=== PATIENT | female | born 1940 | race Caucasian/White ===

== ENCOUNTER 2017-06-01 11:14 | Outpatient (CLI) | payer MEDICARE, BC ==
--- NOTE | 2017-06-14 13:48 | MMO ---
BILATERAL DIGITAL SCREENING MAMMOGRAMS: Date: 06/01/17 HISTORY: 77-year-old female presents for digital screening mammogram. COMPARISON: 03/23/16, 01/09/14, 11/29/12. FINDINGS: This patient's mammogram was interpreted with the assistance of computer-aided detection. Scattered areas of fibroglandular density are noted bilaterally. Stable typically benign calcificati ons. No direct or indirect evidence of malignancy. IMPRESSION: BIRADS 2: Benign Finding(s) Continue routine screening. POS: [facility]
== END 2017-06-01 11:15 | disposition home or self-care (01) ==
LOC: SCSMAMMO 11:14
PROVIDERS: ATTEND Internal Medicine
DX: Z12.31 Encounter for screening mammogram for malignant neoplasm of breast (principal)
CPT/HCPCS: 77067; G0202

== ENCOUNTER 2018-06-09 10:09 | Outpatient (CLI) | payer MEDICARE, BC ==
--- NOTE | 2018-06-09 12:39 | MMO ---
BILATERAL MAMMOGRAMS: History: Screening mammography. Comparison: Multiple exams back to 11-29-12. FINDINGS: This study is interpreted with the assistance of computer aided detection. Scattered fibroglandular densities. No dominant mass or suspicious calcifications. IMPRESSION: BIRADS category 1 - negative. Suggest routine follow up. POS: [facility]
== END 2018-06-09 10:10 | disposition home or self-care (01) ==
LOC: SCSMAMMO 10:09
PROVIDERS: ATTEND Internal Medicine
DX: Z12.31 Encounter for screening mammogram for malignant neoplasm of breast (principal)
CPT/HCPCS: 77067

== ENCOUNTER 2019-09-20 14:23 | Outpatient (CLI) | payer MEDICARE, BC | END 2019-09-20 14:24 | disposition home or self-care (01) | LOC: CTENTCT 14:23 | PROVIDERS: ATTEND Otolaryngology Plastic Surgery within the Head & Neck | DX: J32.9 Chronic sinusitis, unspecified (principal) | CPT/HCPCS: 70486 ==

== ENCOUNTER 2020-01-31 05:42 | Outpatient (CLI) | payer MEDICARE, BC, OTHER ==
[2020-02-01 15:41] LABS: SARS-CoV-2 MS2 Positive; SARS-CoV-2 N Gene Negative; SARS-CoV-2 S Gene Negative; SARS-CoV-2 orf1ab Negative
== END 2020-01-31 05:43 | disposition home or self-care (01) ==
LOC: LABBT 05:42
PROVIDERS: ATTEND Internal Medicine Critical Care Medicine
DX: Z01.812 Encounter for preprocedural laboratory examination (principal); Z11.59 Encounter for screening for other viral diseases; J18.9 Pneumonia, unspecified organism
CPT/HCPCS: 87635; U0003

== ENCOUNTER 2020-02-05 06:04 | Day surgery (SDC) | payer MEDICARE, BC ==
[2020-01-30 10:51] VITALS: BMI 22.0
[2020-02-05] MEDS ORDERED: Lidocaine 4% PF 5 ML AMP NEB SCH (06:30)
[2020-02-05] MEDS ORDERED: Fentanyl 100 MCG/2 ML VIAL ONE (06:39)
[2020-02-05] MEDS ORDERED: Glycopyrrolate 0.2 MG/ML 5 ML SYRINGE ONE (12:22)
[2020-02-05] MEDS ORDERED: Dexamethasone 20 MG/5 ML VIAL ONE (12:22)
[2020-02-05] MEDS ORDERED: Rocuronium Bromide 10 MG/ML (10ML VIAL) ONE (12:22)
[2020-02-05] MEDS ORDERED: PROPOFOL 200 MG/20 ML VIAL ONE (12:22)
[2020-02-05] MEDS ORDERED: Lidocaine 1% PF 5 ML VIAL ONE (12:22)
[2020-02-05] MEDS ORDERED: Ondansetron PF 4 MG/2 ML Vial ONE (12:22)
--- NOTE | 2020-02-05 16:10 | HP ---
HISTORY OF PRESENT ILLNESS: Ms. Moss is a pleasant 79-year-old female, who has had persistent waxing and waning infiltrates predominantly in her right upper lobe for many, many months. Tried to schedule bronchoscopy in the past. She has canceled it at the last time or cancelled after the bronchoscopy date was provided to her. Within the last month, we discussed bronchoscopy again because of CAT scan abnormalities that are slowly progressive. My index of suspicion is that this is Mycobacterium avium. Her radiograph does not have the appearance of a malignancy, although I have explained to her and the patient that the malignancy can look like anything. She has finally agreed to bronchoscopy today. The risks of bleeding, infection, and lung collapse were explained to her. PAST MEDICAL HISTORY: Noncontributory. FAMILY HISTORY: Noncontributory. SOCIAL HISTORY: Noncontributory. She is a nonsmoker. REVIEW OF SYSTEMS: Otherwise negative. Surprisingly, she has no sputum production, so we have been unable to rule out mycobacterial process with a sputum culture. PHYSICAL EXAMINATION: VITAL SIGNS: Her pulse is 80, respiratory rate is 17, oximetry is 98, 97 in the office. HEAD AND NECK: Unremarkable. LUNGS: Clear. HEART: Regular rhythm. S1 and S2 are normal. ABDOMEN: Soft and nontender. EXTREMITIES: Without clubbing, cyanosis, or edema. IMPRESSION: Waxing and waning but lately progressive infiltrates involving predominantly right upper lobe. PLAN: Fiberoptic bronchoscopy with brushings and washings. Job ID: [id number]
--- NOTE | 2020-02-06 05:38 | OP ---
DATE OF PROCEDURE: 02/05/2020 PROCEDURE PERFORMED: Bronchoscopy with brushings and lavage. DESCRIPTION OF PROCEDURE: The patient was sedated by Anesthesia and intubated. Bronchoscope was introduced through the endotracheal tube once the patient was sedated. Surprisingly, copious amounts of thick mucus were encountered in the distal trachea, left mainstem bronchus, and right mainstem bronchus. Anterior segment of her right upper lobe and her apical right upper lobe were all entered. In her anterior segment, there were multiple sub-segments that were occluded with mucus. These were suctioned and lavaged clear. Multiple segments were entered and suctioned and lavaged for culture. Multiple segments were then entered with a brush, which was cut off and placed in saline. The brush will be shaken in the saline and then the fluid will be cultured. A brush was also passed into multiple segments of the right upper lobe and cut off and sent for cytology. Overall, she tolerated the procedure well. There were no immediate complications. She will call next week for preliminary results on the specimens. I have discussed all the above with lab as well. Job ID: [id number]
== END 2020-02-05 10:00 | disposition home or self-care (01) ==
LOC: SDC 06:04
PROVIDERS: ATTEND Internal Medicine Critical Care Medicine
PROC: 0B9C8ZX Drainage of Right Upper Lung Lobe, Via Natural or Artificial Opening Endoscopic, Diagnostic (ICD-10-PCS; principal; 2020-02-05)
PROC: 0BDC8ZX Extraction of Right Upper Lung Lobe, Via Natural or Artificial Opening Endoscopic, Diagnostic (ICD-10-PCS; 2020-02-05)
DX: R91.8 Other nonspecific abnormal finding of lung field (principal); R05 Cough; Z79.899 Other long term (current) drug therapy
CPT/HCPCS: 87070; 87102; 87116; 87205; 87206; 88104; J1100; J2001; J2405; J2704; J3010

== ENCOUNTER 2020-05-16 14:08 | Outpatient (CLI) | payer MEDICARE, BC ==
--- NOTE | 2020-05-19 14:37 | EEG ---
DATE OF SERVICE: DESCRIPTION OF THE RECORD: The waking background is 8 to 9 hertz alpha frequency. The patient became drowsy, but no sleep was seen. Photic stimulation was unremarkable. No epileptiform features were seen. IMPRESSION: This is a normal awake and drowsy EEG. Job ID: [id number]
== END 2020-05-16 14:09 | disposition home or self-care (01) ==
LOC: EEG 14:08
PROVIDERS: ATTEND Internal Medicine
DX: G40.919 Epilepsy, unspecified, intractable, without status epilepticus (principal)
CPT/HCPCS: 95816

== ENCOUNTER 2020-10-01 12:24 | Outpatient (CLI) | payer MEDICARE, BC | END 2020-10-01 12:25 | disposition home or self-care (01) | LOC: BICCT 12:24 | PROVIDERS: ATTEND Internal Medicine Infectious Disease | DX: A31.0 Pulmonary mycobacterial infection (principal); J47.9 Bronchiectasis, uncomplicated; R91.8 Other nonspecific abnormal finding of lung field; S22.079S Unspecified fracture of T9-T10 vertebra, sequela | CPT/HCPCS: 71250 ==

== ENCOUNTER 2020-12-23 13:55 | Outpatient (CLI) | payer MEDICARE, BC | END 2020-12-23 13:56 | disposition home or self-care (01) | LOC: BICCT 13:55 | PROVIDERS: ATTEND Internal Medicine Infectious Disease | DX: A31.0 Pulmonary mycobacterial infection (principal) | CPT/HCPCS: 71250 ==

== ENCOUNTER 2021-03-30 12:50 | Outpatient (CLI) | payer MEDICARE, BC | END 2021-03-30 12:51 | disposition home or self-care (01) | LOC: EEG 12:50 | PROVIDERS: ATTEND Internal Medicine | DX: D35.2 Benign neoplasm of pituitary gland (principal) | CPT/HCPCS: 95816 ==

== ENCOUNTER 2022-02-10 09:04 | Outpatient (CLI) | payer MEDICARE, BC | END 2022-02-10 09:05 | disposition home or self-care (01) | LOC: CT 09:04 | PROVIDERS: ATTEND Internal Medicine Critical Care Medicine | DX: A31.0 Pulmonary mycobacterial infection (principal); R91.8 Other nonspecific abnormal finding of lung field | CPT/HCPCS: 71250 ==

== ENCOUNTER 2022-11-17 08:21 | Outpatient (CLI) | payer MEDICARE, BC | END 2022-11-17 08:22 | disposition home or self-care (01) | LOC: BICCT 08:21 | PROVIDERS: ATTEND Internal Medicine Critical Care Medicine | DX: A31.0 Pulmonary mycobacterial infection (principal); R91.8 Other nonspecific abnormal finding of lung field; J47.9 Bronchiectasis, uncomplicated | CPT/HCPCS: 71250 ==

== ENCOUNTER 2023-08-22 08:39 | Outpatient (CLI) | payer MEDICARE, BC | END 2023-08-22 08:40 | disposition home or self-care (01) | LOC: RAD 08:39 | PROVIDERS: ATTEND Internal Medicine Critical Care Medicine | DX: R06.00 Dyspnea, unspecified (principal) | CPT/HCPCS: 71046 ==

== ENCOUNTER 2024-01-26 12:20 | Outpatient (CLI) | payer MEDICARE, BC | END 2024-01-26 12:21 | disposition home or self-care (01) | LOC: BICCT 12:20 | PROVIDERS: ATTEND Internal Medicine Critical Care Medicine | DX: A31.0 Pulmonary mycobacterial infection (principal) | CPT/HCPCS: 71250 ==

== ENCOUNTER 2024-06-25 10:17 | Outpatient (CLI) | payer MEDICARE, BC | END 2024-06-25 10:18 | disposition home or self-care (01) | LOC: RAD 10:17 | PROVIDERS: ATTEND Internal Medicine Critical Care Medicine | DX: R06.00 Dyspnea, unspecified (principal); R91.8 Other nonspecific abnormal finding of lung field; J98.4 Other disorders of lung | CPT/HCPCS: 71046 ==

== ENCOUNTER 2024-10-04 10:03 | Outpatient (CLI) | payer MEDICARE, BC | END 2024-10-04 10:04 | disposition home or self-care (01) | LOC: BICCT 10:03 | PROVIDERS: ATTEND Internal Medicine Critical Care Medicine | DX: A31.0 Pulmonary mycobacterial infection (principal) | CPT/HCPCS: 71250 ==